=== PATIENT | male | born 1950 | race Caucasian/White ===

== ENCOUNTER → 2018-12-05 | Outpatient (CLI) | payer MEDICARE, OTHER ==
[~2018-12-05] MED LIST: CEPH500 PO; FISH1000; JOINT HEALTH T1 EACH; MULT50L; NAPR220; OXYACE5T PO; RANI150
[2018-12-06 09:54] LABS: Adenovirus F 40/41 Not Detected (NOT DETECT); Astrovirus Not Detected (NOT DETECT); Campylobacter Sp Detected (NOT DETECT); Cryptosporidium Not Detected (NOT DETECT); Cyclospora Cayetanensis Not Detected (NOT DETECT); E. Coli O157 Not Detected (NOT DETECT); Entamoeba Histolytica Not Detected (NOT DETECT); Enteroaggregative E. coli-EAEC Not Detected (NOT DETECT); Enteropathogenic E. coli-EPEC Not Detected (NOT DETECT); Enterotoxigenic E. coli-ETEC Not Detected (NOT DETECT); Giardia Lamblia Not Detected (NOT DETECT); Norovirus GI/GII Not Detected (NOT DETECT); Plesiomonas Shigelloides Not Detected (NOT DETECT); Rotavirus A Not Detected (NOT DETECT); Salmonella Sp Not Detected (NOT DETECT); Sapovirus Not Detected (NOT DETECT); Shiga Toxin-prod E. coli-STEC Not Detected (NOT DETECT); Shigella/Enteroin E. coli-EIEC Not Detected (NOT DETECT); Vibrio Cholerae Not Detected (NOT DETECT); Vibrio Sp Not Detected (NOT DETECT); Yersinia Enterocolitica Not Detected (NOT DETECT)
== END ==
LOC: LAB 09:05 → LAB SHORT 09:05
PROVIDERS: Nurse Practitioner
DX: R19.7 Diarrhea, unspecified (principal)
CPT/HCPCS: 0097U

== ENCOUNTER 2023-09-10 10:54 | Inpatient (IN) | payer OTHER ==
[~2023-09-10] VITALS: Ht 175.3 cm; Wt 75.8 kg
[~2023-09-10 10:54] MED LIST changes: -NAPR220; +NAPR220 PO
[2023-09-10 11:49] LABS: BASOPHILS ABSOLUTE AUTO 0.02 K/mm3 (0.00-0.23); BASOPHILS PERCENT AUTO 0 % (0-2); EOSINOPHILS ABSOLUTE AUTO 0.07 K/mm3 (0.00-0.68); EOSINOPHILS PERCENT AUTO 1 % (0-6); Hemoglobin 12.9 g/dL (13.5-17.5); IMMATURE GRAN PERCENT AUTO 1 % (0-1); LYMPHOCYTES ABSOLUTE AUTO 1.26 K/mm3 (0.84-5.20); LYMPHOCYTES PERCENT AUTO 11 % (21-46); MONOCYTES ABSOLUTE AUTO 1.22 K/mm3 (0.16-1.47); MONOCYTES PERCENT AUTO 10 % (4-13); Mean Corpuscular HGB 27.9 pg (26.0-34.0); Mean Corpuscular HGB Conc 33.1 g/dL (31.5-36.5); Mean Corpuscular Volume 84 fL (80-100); Mean Platelet Volume 8.7 fL (9.1-12.4); NEUTROPHILS ABSOLUTE AUTO 9.11 K/mm3 (1.96-9.15); NEUTROPHILS PERCENT AUTO 77 % (41-73); Platelet Count 374 K/mm3 (150-400); RDW Coefficient Variation 14.1 % (11.7-14.2); RDW Standard Deviation 43.8 fL (35.1-46.3); Red Blood Cell Count 4.62 M/mm3 (4.30-5.90); White Blood Cell Count 11.78 K/mm3 (4.00-11.30)
[2023-09-10] MEDS ORDERED: Prednisone10 MG PO (11:57)
[2023-09-10] MEDS ORDERED: ALBU90OI INH (11:58)
[2023-09-10] MEDS ORDERED: METFORMIN HCL500 M3 PO (11:58)
[2023-09-10] MEDS ORDERED: ROSUVASTATIN CA20 MG PO (11:58)
[2023-09-10] MEDS ORDERED: HYDROmorphone HCl/Pf 1MG SYR IV ONE ×2 (12:00→16:15)
[2023-09-10] MEDS ORDERED: Ondansetron HCl 2 MG / ML 2ML Vial IV ONE (12:00)
[2023-09-10 12:09] LABS: Albumin, Blood 3.9 g/dL (3.4-5.0); Bilirubin, Total 0.8 mg/dL (0.1-1.0); Bun/Creatinine Ratio 34.6 (12.0-20.0); Calcium, Blood 10.3 mg/dL (8.5-10.1); Creatinine, Blood 0.69 mg/dL (0.60-1.20); Globulin, Blood 3.9 g/dL (2.2-4.0); Potassium, Blood 3.9 mmol/L (3.5-5.5); Total Protein, Blood 7.8 g/dL (6.4-8.2)
[2023-09-10] MEDS ORDERED: Dexamethasone Sod Phos 10 MG/ML 1ML VIAL IV ONE (17:10)
[2023-09-10] MEDS ORDERED: Ondansetron HCl 2 MG / ML 2ML Vial IV PRN (17:15)
[2023-09-10] MEDS ORDERED: Naloxone HCl 0.4MG / ML 1ML Vial IV PRN (17:15)
[2023-09-10] MEDS ORDERED: HYDROmorphone HCl/Pf 1MG SYR IV PRN (17:15)
[2023-09-10] MEDS ORDERED: OxyCODONE HCL 5 MG TAB PO PRN (17:15)
[2023-09-10] MEDS ORDERED: Acetaminophen 325 MG TABLET PO PRN (17:20)
[2023-09-10] MEDS ORDERED: Ketorolac Tromethamine 15mg Vial IV PRN (18:35)
[2023-09-10] MEDS ORDERED: Albuterol 2.5 MG/3 ML VIAL INH PRN (19:05)
[2023-09-10] MEDS ORDERED: Tiotropium Bromide 2.5 MCG/ACT MIST INHAL (10 ACT/4 GM) INH SCH (19:05)
[2023-09-10] MEDS ORDERED: MetFORMIN HCl 500 mg PO SCH (19:13)
[2023-09-10] MEDS ORDERED: Albuterol HFA200 ACT/6.7 GM INH INH PRN (19:15)
[2023-09-10 20:42] VITALS: BP 150/68
[2023-09-10] MEDS ORDERED: Docusate Sodium 100 MG Cap PO SCH (21:00)
[2023-09-10] MEDS ORDERED: Rosuvastatin Calcium 10 MG Tab PO SCH (21:00)
[2023-09-11 02:48] VITALS: BP 154/83
[2023-09-11 05:08] LABS: BASOPHILS ABSOLUTE AUTO 0.01 K/mm3 (0.00-0.23); BASOPHILS PERCENT AUTO 0 % (0-2); EOSINOPHILS ABSOLUTE AUTO 0.01 K/mm3 (0.00-0.68); EOSINOPHILS PERCENT AUTO 0 % (0-6); Hematocrit 38.6 % (37.0-53.0); Hemoglobin 12.6 g/dL (13.5-17.5); IMMATURE GRAN ABSOLUTE AUTO 0.07 K/mm3 (0.00-0.10); IMMATURE GRAN PERCENT AUTO 1 % (0-1); LYMPHOCYTES ABSOLUTE AUTO 0.84 K/mm3 (0.84-5.20); LYMPHOCYTES PERCENT AUTO 8 % (21-46); MONOCYTES ABSOLUTE AUTO 1.11 K/mm3 (0.16-1.47); MONOCYTES PERCENT AUTO 11 % (4-13); Mean Corpuscular HGB 27.9 pg (26.0-34.0); Mean Corpuscular HGB Conc 32.6 g/dL (31.5-36.5); Mean Corpuscular Volume 85 fL (80-100); Mean Platelet Volume 9.1 fL (9.1-12.4); NEUTROPHILS ABSOLUTE AUTO 7.99 K/mm3 (1.96-9.15); NEUTROPHILS PERCENT AUTO 80 % (41-73); Platelet Count 317 K/mm3 (150-400); RDW Coefficient Variation 14.2 % (11.7-14.2); RDW Standard Deviation 43.8 fL (35.1-46.3); Red Blood Cell Count 4.52 M/mm3 (4.30-5.90); White Blood Cell Count 10.03 K/mm3 (4.00-11.30)
[2023-09-11 05:46] LABS: Albumin, Blood 3.2 g/dL (3.4-5.0); Albumin/Globulin Ratio 0.9 (0.8-1.8); Bilirubin, Total 0.7 mg/dL (0.1-1.0); Bun/Creatinine Ratio 30.8 (12.0-20.0); Calcium, Blood 9.8 mg/dL (8.5-10.1); Creatinine, Blood 0.62 mg/dL (0.60-1.20); Globulin, Blood 3.6 g/dL (2.2-4.0); Magnesium, Blood 1.8 mg/dL (1.6-2.4); Percent Saturation 9.7 % (20.0-50.0); Potassium, Blood 4.5 mmol/L (3.5-5.5); Total Protein, Blood 6.8 g/dL (6.4-8.2)
[2023-09-11 07:23] VITALS: BP 138/73
[2023-09-11] MEDS ORDERED: Insulin Human Lispro 100 Units/ML 3ML Syringe SC SCH (07:30)
--- NOTE | 2023-09-11 07:37 | NUR ---
[facility] TRANSPORTED PT TO THE [facility]ER CENTER AT 0725 VIA W/C. PT A&OX4, VSS, AMB W/ ASSIST, TOLERATING PO, VOIDING, AND PAIN MANAGED PER EMAR. PT TO RETURN UPON TX COMPLETION, EST TIME TO RETURN OF 1200.
[2023-09-11] MEDS ORDERED: Dexamethasone Sodium Phosphate 4 MG/ML 1ML Vial IV SCH (09:00)
[2023-09-11] MEDS ORDERED: Enoxaparin 40 MG/0.4 ML SYR SC SCH (09:00)
--- NOTE | 2023-09-11 09:58 | NUR ---
PT ARRIVED BACK TO THE FLOOR AT 0958 FROM THE [facility].
[2023-09-11] MEDS ORDERED: HYDROcodone 5-APAP 325 TAB PO PRN (11:25)
[2023-09-11 16:27] VITALS: BP 158/76
--- NOTE | 2023-09-11 18:07 | NUR ---
SHIFT SUMMARY PT A&OX4, VSS, ON 2L O2 NC, AMB W/ SBA, TOLERATING PO, VOIDING URINE-NO BM THIS SHIFT, AND PAIN MANAGED PER EMAR. PT AMBULATED AROUND THE FLOOR THIS SHIFT AND TOLERATED IT WELL. CALL LIGHT WITHIN REACH AND PT ABLE TO MAKE NEEDS KNOWN.
[2023-09-11 20:19] VITALS: BP 142/75
[2023-09-12 04:14] VITALS: BP 150/77
[2023-09-12 04:52] LABS: BASOPHILS ABSOLUTE AUTO 0.02 K/mm3 (0.00-0.23); BASOPHILS PERCENT AUTO 0 % (0-2); EOSINOPHILS ABSOLUTE AUTO 0.21 K/mm3 (0.00-0.68); EOSINOPHILS PERCENT AUTO 2 % (0-6); Hematocrit 36.9 % (37.0-53.0); Hemoglobin 11.9 g/dL (13.5-17.5); IMMATURE GRAN ABSOLUTE AUTO 0.13 K/mm3 (0.00-0.10); IMMATURE GRAN PERCENT AUTO 1 % (0-1); LYMPHOCYTES ABSOLUTE AUTO 1.23 K/mm3 (0.84-5.20); LYMPHOCYTES PERCENT AUTO 11 % (21-46); MONOCYTES ABSOLUTE AUTO 1.46 K/mm3 (0.16-1.47); MONOCYTES PERCENT AUTO 13 % (4-13); Mean Corpuscular HGB 27.5 pg (26.0-34.0); Mean Corpuscular HGB Conc 32.2 g/dL (31.5-36.5); Mean Corpuscular Volume 85 fL (80-100); Mean Platelet Volume 8.9 fL (9.1-12.4); NEUTROPHILS ABSOLUTE AUTO 8.21 K/mm3 (1.96-9.15); NEUTROPHILS PERCENT AUTO 73 % (41-73); Platelet Count 324 K/mm3 (150-400); RDW Coefficient Variation 14.3 % (11.7-14.2); RDW Standard Deviation 44.7 fL (35.1-46.3); Red Blood Cell Count 4.32 M/mm3 (4.30-5.90); White Blood Cell Count 11.26 K/mm3 (4.00-11.30)
[2023-09-12 05:26] LABS: Bun/Creatinine Ratio 35.9 (12.0-20.0); Calcium, Blood 9.9 mg/dL (8.5-10.1); Creatinine, Blood 0.78 mg/dL (0.60-1.20); Potassium, Blood 4.1 mmol/L (3.5-5.5)
[2023-09-12 07:40] VITALS: BP 163/80
[2023-09-12] MEDS ORDERED: Magnesium Hydroxide Conc 10 ML UDC PO PRN ×2 (08:10→20:55)
[2023-09-12] MEDS ORDERED: Bisacodyl 10 MG Supp PR PRN ×2 (08:10→20:55)
[2023-09-12] MEDS ORDERED: Sennosides 8.6 MG Tab PO SCH ×2 (09:00→21:00)
[2023-09-12] MEDS ORDERED: Insulin Regular 100 UNIT/ML 10ML Vial SC SCH (16:30)
[2023-09-12 17:35] VITALS: BP 144/76
--- NOTE | 2023-09-12 17:53 | NUR ---
SHIFT SUMMARY NO ACUTE CHANGES THIS SHIFT. PAIN MANAGED PER EMAR. CALL LIGHT WTIHIN REACH AND PT ABLE TO MAKE NEEDS KNOWN.
[2023-09-12] MEDS ORDERED: Benzonatate 100 MG Cap PO PRN (20:50)
[2023-09-12] MEDS ORDERED: HYDROcodone 5-APAP 325 TAB PO PRN ×2 (20:50→23:20)
[2023-09-12] MEDS ORDERED: LORazepam 0.5 MG Tab PO ONE (20:50)
[2023-09-12] MEDS ORDERED: Docusate Sodium 100 MG Cap PO SCH (21:00)
[2023-09-12 21:07] VITALS: BP 145/80
[2023-09-13 05:51] VITALS: BP 150/74
[2023-09-13 07:32] VITALS: BP 152/85
[2023-09-13 15:12] VITALS: BP 152/80
[2023-09-13] MEDS ORDERED: Bisacodyl 10 MG Supp PR PRN (15:15)
[2023-09-13] MEDS ORDERED: Docusate Sodium 100 MG Cap PO SCH (16:00)
[2023-09-13] MEDS ORDERED: Polyethylene Glycol 3350 17 gm PO SCH (16:00)
[2023-09-13] MEDS ORDERED: Sod Ferric Gluc Complx/Sucrose 125 MG in NS 100 ML IV SCH (17:00)
[2023-09-13] MEDS ORDERED: NS 250 ML IV PRN (17:20)
--- NOTE | 2023-09-13 18:22 | NUR ---
SHIFT SUMMARY PT CONT C/O PAIN AND CONSTIPATION THAT WAS MEDICATED PER THE EMAR. PT WORKED W/ PHYSICAL THERAPY AND TOLERATED IT WELL, SEE THERAPY NOTE. FERRLECIT GIVEN THIS SHIFT. NO OTHER ACUTE CHANGES. PT TO HAVE RADIATION TOMORROW AT THE CAN[facility]ER CENTER AT 1500. CALL LIGHT WITHIN REACH AND PT ABLE TO MAKE NEEDS KNOWN.
[2023-09-13] MEDS ORDERED: Insulin Human Lispro 100 Units/ML 3ML Syringe SC SCH (21:00)
[2023-09-13 21:11] VITALS: BP 153/74
[2023-09-14 04:15] VITALS: BP 146/78
[2023-09-14 05:19] LABS: Bun/Creatinine Ratio 36.1 (12.0-20.0); Calcium, Blood 9.9 mg/dL (8.5-10.1); Creatinine, Blood 0.58 mg/dL (0.60-1.20); Potassium, Blood 4.4 mmol/L (3.5-5.5)
--- NOTE | 2023-09-14 05:43 | NUR ---
SHIFT SUMMARY PT A&OX4 AND CALLS APPROPRIATELY. PT PAIN IS DIFFICULT TO MANAGE, MEDICATED PER EMAR, REPOSITIONED, HEAT THERAPY ATTEMPTED. PT TO RECEIVE RADIATION ON 09/14/23. VSS. PT SPENT MOST OF SHIFT IN BED RESTING WITH EYES CLOSED AND RESPIRATIONS EVEN. PT MOVED TO CHAIR AROUND 0430 FOR COMFORT. PT REPOSITIONED INDEPENDENTLY. NO ACUTE EVENTS AT THIS TIME. FALL PRECAUTIONS IN PLACE AND CALL LIGHT IN REACH.
[2023-09-14 07:50] VITALS: BP 107/93
[2023-09-14] MEDS ORDERED: HYDROcodone 10-APAP 325 TAB PO PRN (08:00)
[2023-09-14] MEDS ORDERED: dexAMETHasone 4 MG TAB PO SCH (08:00)
--- NOTE | 2023-09-14 17:32 | NUR ---
[facility] RADI[facility] APPT APPT TIME [facility] 16TH-1300 1230 17TH-1440 1420 18TH-1400 1330 19TH-0830 0800 [facility]. [facility].
--- NOTE | 2023-09-14 18:13 | NUR ---
SHIFT SUMMARY PT AWAKE DURING SHIFT REPORT. VERY PLEASANT AND CO-OP WITH CARE. C/O CONSTIPATION; PT MEDICATED PER EMAR. ADDITIONAL BOWEL CARE REQUESTED FROM DR STERN; NEW ORDERS PLACED TO START TONIGHT. PT INCREASED WATER INTAKE TODAY WELL WALKED IN HALLS SEVERAL TIMES. PT MEDICATED PER EMAR THRU SHIFT FOR C/O PAIN. PT TRYING TO REDUCE NARCOTICS IN ORDER TO GO HOME AND MANAGE PAIN. PT TRANSPORTED TO CANCER CENTER FOR RADIATION TX THIS AFTERNOON. PER , PT RECEIVED DOUBLE DOSE TODAY. WILL HAVE SINGLE DOSE TOMORROW. MULTIPLE FAMILY IN AND OUT OF RM VISITING. ALL VERY PLEASANT AND SUPPORTIVE. PT DENIES FURTHER NEEDS AT THIS TIME. CALL LT IN REACH.
[2023-09-14 20:45] VITALS: BP 154/76
[2023-09-14] MEDS ORDERED: Sennosides 8.6 MG Tab PO SCH (21:00)
[2023-09-15 02:52] VITALS: BP 160/81
--- NOTE | 2023-09-15 05:30 | NUR ---
SHIFT SUMMARY PT A&OX4 AND ANSWERS QUESTIONS APPROPRIATELY. MEDICATED FOR PAIN PER EMAR. HS MEDS ADMINISTERED. PT HAD SMALL BM. VSS, NO COMPLAINTS OF CHEST PRESSURE OR SOB.PAIN IN CHEST FROM CANCER MASS ON RIGHT WALL. NO ACUTE EVENTS AT THIS TIME. PT REPOSITIONED INDEPENDENTLY THROUGH SHIFT. FALL PRECAUTIONS IN PLACE AND CALL LIGHT IN REACH.
[2023-09-15 07:24] VITALS: BP 147/77
--- NOTE | 2023-09-15 18:09 | NUR ---
SHIFT SUMMARY PT AWAKE AT START OF SHIFT, RESTING QUIETLY IN BED. IN EARLY AGAIN THIS AM AND REMAINS AT BS. PT MEDICATED PER EMAR FOR CONSTIPATION WITH SOME RESULTS TODAY. BM X2 SO FAR. MORE BOWEL CARE TO BE GIVEN WITH HS MEDS WELL. PT TO CANCER CENTER AGAIN TODAY FOR RADIATION TX. MULTIPLE FAMILY MEMBERS IN TO VISIT BEFORE AND AFTER TX, STAYING ALL DAY. DR STERN IN TO SEE PT AND DISCUSS PLAN OF CARE. PT HOPING TO D/C PRIOR TO THURSDAY HE HAS AN APPOINTMENT IN [place] FOR A LUNG BIOPSY. SITTING UP TO EOB EATING DINNER. DENIES FURTHER NEEDS AT THIS TIME. CALL LT IN REACH.
[2023-09-15 19:39] VITALS: BP 158/76
[2023-09-16 02:55] VITALS: BP 138/96
--- NOTE | 2023-09-16 04:59 | NUR ---
SHIFT SUMMARY THIS RN ASSUMED CARE OF PATIENT AT 1900. PT A&O X4. ABLE TO MAKE NEEDS KNOWN. VSS. IND TO BATHROOM WITH FWW. BREATHING TREATMENTS PRN. MEDICATING PER EMAR FOR PAIN. PO PAIN MEDS GIVEN Q4HRS. IV DILAUDID GIVEN X1 DURING THIS SHIFT. PT EDUCATED ON PAIN MANAGEMENT AND CALLING PRIOR TO PAIN INCREASING. BED IN LOWEST POSITION AND CALL LIGHT WITHIN REACH. THIS RN WILL REPORT TO ONCOMING DAYSHIFT RN.
[2023-09-16 07:26] VITALS: BP 143/72
[2023-09-16] MEDS ORDERED: OxyCODONE HCL 10 MG TABCR PO SCH (10:00)
--- NOTE | 2023-09-16 17:20 | NUR ---
SHIFT SUMMARY PT CONT LEVEL OF CARE WITH NO ACUTE CHANGES. PT WENT TO RADIATION THIS SHIFT. PT CONT TO REMAIN IN A GREAT DEAL OF PAIN. PT CONT TO TAKE PRN NORCO Q4HRS ALONG WITH REPOSITIONING AND HEAT THERAPY.
[2023-09-16 19:32] VITALS: BP 147/78
[2023-09-17 05:13] VITALS: BP 158/86
--- NOTE | 2023-09-17 05:55 | NUR ---
SUMMARY: PT A/OX4, IS INDEPENDENT IN ROOM W/FWW AND CALL APPROPRIATE TO SPECIFY NEEDS. HE'S MILDLY ANXIOUS APPEARING AT TIMES R/T PAIN AND RECEIVED SCHEDULED OXYCONTIN AND PRN NORCO FOR TOLERABLE RELIEF OF CHEST/RIB, BACK AND KNEE PAIN. WHEEZES AUSCULTATED BILATERALLY AND BREATHING TX'S PROVIDED PER RT. HE DENIES SOB/DYSPNEA AND SPO2 IS WNL ON 1-2L O2 VIA NC. VSS/AFEBRILE AND NO ACUTE CHANGES. POSSIBLE D/C HOME TODAY. WCTM AND REPORT TO DAY RN.
[2023-09-17 07:23] VITALS: BP 145/75
[2023-09-17] MEDS ORDERED: VITAMIN C125 MG PO (11:33)
[2023-09-17] MEDS ORDERED: Colace100 MG PO (11:34)
[2023-09-17] MEDS ORDERED: FERSU300 PO (11:34)
[2023-09-17] MEDS ORDERED: HYDACE10B PO (11:35)
[2023-09-17] MEDS ORDERED: SENN187 PO (11:36)
[2023-09-17] MEDS ORDERED: MIRALAX17 GM PO (11:36)
[2023-09-17] MEDS ORDERED: OXYC10ER PO (11:37)
--- NOTE | 2023-09-17 12:21 | NUR ---
DISCHARGE SUMMARY PT DC THIS SHIFT DC INSTRUCTION AND EDUCATION GONE OVER WITH PT AND PT BOTH PARTIES STATED UNDERSTANDING. PT LEFT MEDICAL FLOOR VIA WHEELCHAIR ACCOMPAIED BY THIS NURSE TO PRIVATE VEHICLE [facility] .
== END 2023-09-17 12:12 | disposition home or self-care (01) | DRG 543 ==
LOC: ER 10:54 → MEDS 10:55
PROVIDERS: Family Medicine; Internal Medicine; Physician Assistant; ADMIT Student in an Organized Health Care Education/Training Program
DX: M48.56XA Collapsed vertebra, not elsewhere classified, lumbar region, initial encounter for fracture (principal); C34.01 Malignant neoplasm of right main bronchus; C34.31 Malignant neoplasm of lower lobe, right bronchus or lung; C78.7 Secondary malignant neoplasm of liver and intrahepatic bile duct; C79.51 Secondary malignant neoplasm of bone; C79.70 Secondary malignant neoplasm of unspecified adrenal gland; C41.2 Malignant neoplasm of vertebral column; E11.9 Type 2 diabetes mellitus without complications; E78.00 Pure hypercholesterolemia, unspecified; D63.8 Anemia in other chronic diseases classified elsewhere; D50.9 Iron deficiency anemia, unspecified; K59.00 Constipation, unspecified; R59.0 Localized enlarged lymph nodes; G89.29 Other chronic pain; Z85.46 Personal history of malignant neoplasm of prostate; Z90.6 Acquired absence of other parts of urinary tract
CPT/HCPCS: 36415; 72131; 80048; 80053; 82728; 82947; 83036; 83540; 83550; 83735; 85025; 94640; 94664; 94762; 96374; 96375; 96376; 97110; 97116; 97161; 97530; 99285-25; A9270; G0378; J1100; J1170; J1650; J1815; J1885; J2405; J2916; J7050